=== PATIENT | female | born 1955 | race Caucasian/White ===

== ENCOUNTER → 2019-10-29 | Outpatient (CLI) | payer SELFPAY ==
--- NOTE | 2019-10-29 14:59 | KCIC ---
CT for coronary artery calcium scoring, without IV contrast, 10/29/2019 2:55 PM INDICATION: Reason: ELEVATED LIPIDS, CARDIOVASCULAR SCREENING / Spl. Instructions: / History: Technique: Noncontrast CT images through the coronary arteries was performed . Findings: No significant noncardiac findings are identified. Visual inspection of the coronary arteries: Small areas of calcification are seen within the LAD and RCA. The remaining coronary arteries are without discernible calcified plaque. The computer-generated calcium scoring utilizing 130 criteria are as follows: Left Main Artery: 0. Left Anterior Descending Artery: 5.5. Left Circumflex Artery: 0. Right Coronary Artery: 2. Posterior Descending Artery: 0. The total calcium score is 7.5. Impression: Your total calcium score is 7.5. A small amount of plaque is present. The chance of significant heart disease is less than 10%, and corresponds to a low risk for a myocardial infarction. Table: 0: No plaque is present. The chance of significant heart disease is less than 5%, and corresponds to a very low risk for a myocardial infarction. 1-10: A small amount of plaque is present. The chance of significant heart disease is less than 10%, and corresponds to a low risk for a myocardial infarction. 11-100: Plaque is present. This correlates with mild heart disease and a moderate risk for a myocardial infarction. 101-400: A moderate amount of plaque is present. This correlates with heart disease, and a moderate to high risk for a myocardial infarction. Over 400: A large amount of plaque is present. This correlates with a greater than 90% chance of a high grade stenosis. The risk for myocardial infarction is high. Electronically signed by: Mario Hoff MD (10/29/2019 2:56 PM) [id number]
== END | disposition home or self-care (01) ==
LOC: KCIC CT 12:40
PROVIDERS: ATTEND Family Medicine
DX: Z13.6 Encounter for screening for cardiovascular disorders (principal); I25.10 Atherosclerotic heart disease of native coronary artery without angina pectoris; I21.29 ST elevation (STEMI) myocardial infarction involving other sites
CPT/HCPCS: 75571